=== PATIENT | female | born 1940 | race Caucasian/White ===

== ENCOUNTER 2019-04-13 13:34 | Outpatient (CLI) | payer MEDICARE, SELFPAY ==
--- NOTE | 2019-04-13 13:43 | CTR_ITS ---
PROCEDURE INFORMATION: Exam: CT Abdomen And Pelvis With Contrast Exam date and time: 04/13/2019 1:46 PM Age: 78 years old Clinical indication: Abdominal pain; Generalized; Prior surgery; Surgery date: 6+ months; Surgery type: Appy, bg, hyst; Patient HX: Upper abd pain for multiple months worsening TECHNIQUE: Imaging protocol: Computed tomography of the abdomen and pelvis with intravenous contrast. Total DLP: 1171.55 mGy-cm Radiation optimization: All CT scans at this facility use at least one of these dose optimization techniques: automated exposure control; mA and/or kV adjustment per patient size (includes targeted exams where dose is matched to clinical indication); or iterative reconstruction. Contrast material: OMNIPAQUE; Contrast volume: 95 ml; Contrast route: IV; COMPARISON: CT abdomen pelvis w con* [id number] 11/28/2017 2:31 PM FINDINGS: Lungs: visualized portions of the lung bases normal. Liver: Severe fatty infiltration of the liver. Gallbladder and bile ducts: Surgical clips are present in the region of the gallbladder fossa. Pancreas: Normal. No ductal dilation. Spleen: Normal. No splenomegaly. Adrenals: Normal. No mass. Kidneys and ureters: Normal. No hydronephrosis. Stomach and bowel: Diverticulosis without evidence of diverticulitis. Appendix: The appendix is not visualized. Intraperitoneal space: No free fluid within the pelvis or within the dependent portions of the peritoneum. Vasculature: Calcification of the aorta. Lymph nodes: Unremarkable. No enlarged lymph nodes. Bladder: Unremarkable as visualized. Reproductive: Prior hysterectomy. Bones/joints: Degenerative changes are present within the spine. Soft tissues: Unremarkable. Other findings: No acute intra-abdominal process. No inflammatory process. No obstruction. CT/CT abdomen pelvis w con* [id number] IMPRESSION: 1. No acute intra-abdominal process. No inflammatory process. No obstruction. 2. No free fluid within the pelvis or within the dependent portions of the peritoneum. 3. Severe fatty infiltration of the liver. 4. Diverticulosis without evidence of diverticulitis. Radiation Dose CTDIVOL = (mGy): DLP = 1171.55 (mGy-cm)
[2019-04-13] MEDS: iohexol 300 mg/mL 50 mL Btl PO (13:51)
[2019-04-13 14:21] LABS: Blood Urea Nitrogen 18 mg/dL (8-23)
[2019-04-13] MEDS: iodixanol 320 mg/mL 100mL Btl IV (15:39)
== END 2019-04-13 13:35 | disposition home or self-care (01) ==
LOC: RAD 13:41
PROVIDERS: Family Provider Family Medicine; PCP Family Medicine; Visit Provider Family Medicine
DX: K57.90 Diverticulosis of intestine, part unspecified, without perforation or abscess without bleeding (principal); K76.0 Fatty (change of) liver, not elsewhere classified; R10.9 Unspecified abdominal pain
CPT/HCPCS: 36415; 74177; 82565; 84520

== ENCOUNTER 2019-09-21 13:04 | Outpatient (CLI) | payer MEDICARE, SELFPAY ==
--- NOTE | 2019-09-21 | XR_ITS ---
WS: [id number] LATERAL LUMBAR SPINE: 3 view. Lateral radiographs are performed in upright neutral, flexion and extension to the patient's toleranc e. HISTORY: LOW BACK PAIN COMPARISON: 12/07/2010 Mild curvature of the lumbar spine and mild straightening. Posterior alignment is normal. Diffuse ost eopenia with facet joint arthritis. No instability with flexion or extension. Very slight anterior we dging of L1. Prior cholecystectomy. Atherosclerosis aorta. XR/XR lumbar spine f/e only [id number] IMPRESSION: 1. No lumbar spine instability. 2. Osteopenia with degenerative changes throughout the lumbar spine with moder ate progression since 2010.
== END 2019-09-21 13:05 | disposition home or self-care (01) ==
LOC: RADWPI 13:07
PROVIDERS: Family Provider Family Medicine; PCP Family Medicine; Visit Provider Nurse Practitioner
DX: M54.5 Low back pain (principal); M85.89 Other specified disorders of bone density and structure, multiple sites
CPT/HCPCS: 72120

== ENCOUNTER 2019-10-22 14:40 | Outpatient (CLI) | payer MEDICARE, SELFPAY ==
--- NOTE | 2019-10-22 14:47 | MM_ITS ---
WS: [id number] BILATERAL DIGITAL SCREENING MAMMOGRAPHY WITH CAD CLINICAL INFORMATION: SCREENING HISTORY: Screening mammogram. No current complaints. COMPARISON: June 26, 2016 TECHNIQUE: Bilateral CC and MLO views. FINDINGS: Scattered fibroglandular densities bilaterally. No suspicious focal mass, asymmetry, calcifications, or architectural distortion. No evidence of malignancy. Vascular and lucent centered calcifications. Stable left intramammary lymph node with fatty hilum. MM/[place] [id number] IMPRESSION: BI-RADS: 2-Benign FOLLOW UP: 1 Year Follow-up Recommend return to annual screening mammography.
--- NOTE | 2019-10-22 15:22 | XR_ITS ---
WS: [id number] DEXA (DUAL ENERGY X-RAY ABSORPTIOMETRY) Bone mineral density was performed using a Technit[employer] machine. HISTORY: ANNUAL EXAM COMPARISON: None available. Lumbar spine BMD (L1-L4): 1.274 g/cm2 T score: 0.8 Z score: 1.9 Total hip BMD: Left: 0.896 g/cm2. T score: -0.9 Z score: 0.5 Right: 0.924 g/cm2. T score: -0.7 Z score: 0.7 10 year probability of a major osteoporotic fracture is 12%. Mild LEFT convex curvature lumbar spine. XR/XR DEXA axial skeleton* [id number] IMPRESSION: NORMAL BONE MINERAL DENSITY based upon the WHO classification for females.
== END 2019-10-22 14:41 | disposition home or self-care (01) ==
LOC: RADSHAW 14:46
PROVIDERS: PCP Family Medicine; Visit Provider Family Medicine
DX: Z12.31 Encounter for screening mammogram for malignant neoplasm of breast (principal); Z78.0 Asymptomatic menopausal state
CPT/HCPCS: 77067; 77080

== ENCOUNTER 2020-04-14 10:26 | Outpatient (CLI) | payer MEDICARE, SELFPAY ==
--- NOTE | 2020-04-14 10:43 | XR_ITS ---
WS: [id number] Chest 2 views, 04/14/2020 Clinical Data: DYSPNEA Comparison: None. Findings: No nodules, masses or effusions are seen. The heart is normal. The pulmonary vascularity is not increased. No pneumonia or pneumothorax is seen. The right diaphragm is elevated. The aortic arc h and descending aorta show calcification and tortuosity. There are clips in the upper abdomen from a cholecystectomy. XR/XR chest 2V* [id number] Impression: Atherosclerosis.
== END 2020-04-14 10:27 | disposition home or self-care (01) ==
PROVIDERS: PCP Family Medicine; Visit Provider Family Medicine
DX: R06.02 Shortness of breath (principal); I70.90 Unspecified atherosclerosis
CPT/HCPCS: 71046

== ENCOUNTER 2020-04-22 08:12 | Outpatient (CLI) | payer MEDICARE, SELFPAY ==
[2020-04-22 08:58] VITALS: BMI 31.3
--- NOTE | 2020-04-22 08:58 | ECG_ITS ---
[facility] Test Date: 2020-04-22 Pat Name: Kell Tripathi Department: Room: Gender: Female [employer]ter: : 1940 Requested By: Kulwinder Marin Order Number: [id number] Robinson MD: Zaira Guerrero M.D. Interpretive Statements NAME OF STUDY: LEXISCAN SESTAMIBI STRESS TEST INDICATION: Screening for IHD, CAD PROCEDURE: At the baseline, the blood pressure was 160/85 mmHg with a heart rate of 66 bpm. The electrocardiogram showed normal sinus rhythm, normal axis with possible old septal infarct. Nonspecific ST depression. The Lexiscan was infused over a period of 20 seconds. A total of 0.4 milligrams of Lexiscan was infused. The stress phase was continued for a total of 5 minutes. Heart rate at the end of the stress phase was 83 bpm with a blood pressure of 185/89 mmHg. The EKG at the peak infusion revealed no significant ST-T wave changes. Sestamibi was injected 20 seconds after the Lexiscan infusion. Blood pressure at the end of the recovery phase was 193/96 mmHg with a heart rate of 84 beats per minute. CONCLUSION: 1. No significant EKG changes with the LexiScan infusion. 2. No LexiScan induced chest pain or cardiac arrhythmia. 3. Normal blood pressure and heart rate response. 4. Sestamibi/sestamibi perfusion scan pending; see separate report. Electronically Signed On 04-25-2020 16:54:17 [facility] by Zaira Guerrero M.D. [id number]
--- NOTE | 2020-04-22 08:59 | NMCV_ITS ---
NM mikaela perf SPECT r/s* [id number] Kell Tripathi Age: 79 Gender: F : 1940 Exam Date: 04/22/2020 10:12 Ordering Phys: Kulwinder Ace MD Technologist: YINA Mendez Exam Location: [facility] Indications: SCREENING FOR ISCHEMIC HEART DISEASE STRESS TEST Please see separate stress test report in [facility] for full findings IMAGE PROTOCOL Rest/Stress 1 Lexiscan Day Radiopharmaceutical Dose (mCi) Administration Site Administered by Rest: Tc-99m 10.7 IV YINA Ramsay Sestamibi Stress:Tc-99m 33.0 IV YINA Ramsay Sestamibi Rest: 04/22/2020 60 Discovery 630 Stress: 04/22/2020 30 Discovery 630 0.4mg Lexiscan. Images obtained in supine and prone position. SPECT RESULTS Technical Quality: Excellent Raw Data Analysis: Normal Image Corrections: No attenuation or motion correction applied Summed Stress Score: 0 Summed Rest Score: 0 Summed Difference Score: 0 PERFUSION FINDINGS SPECT images demonstrate homogeneous tracer distribution throughout the myocardium. FUNCTIONAL RESULTS (calculated via Gated SPECT) Stress Image LV EF (%): 92 Stress EDV (mL):50 TID: 1 Stress ESV (mL):4 FUNCTIONAL FINDINGS: The left ventricle is normal in size. Transient Ischemia Dilatation of 1. There is hyperdynamic left ventricular systolic function. The left ventricular ejection fraction is hyperdynamic with a value of 92%. There is hyperdynamic left ventricular wall thickening. IMPRESSIONS 1. Myocardial perfusion imaging is normal. 2. Overall left ventricular systolic function is normal without regional wall motion abnormalities. 3. The left ventricular ejection fraction is hyperdynamic with a value of 92%. 4. There is hyperdynamic left ventricular wall thickening. 5. This study suggests a low likelihood of angiographically significant coronary artery disease. Zaira Guerrero MD (Electronically Signed) Final Date: 25 April 2020 16:50 S
--- NOTE | 2020-04-22 10:35 | PC.NURSE ---
pt held bp meds for 24 hrs not 48. called and verified with dr lopez to continue with exercise mibi. he said to proceed with exercise mibi.
--- NOTE | 2020-04-22 10:56 | PC.NURSE ---
pt not able to complete treadmill portion of test. call into dr lopez to change to oscar. dr not in office at this minute. office to call back with dr turner.
--- NOTE | 2020-04-22 11:28 | PC.NURSE ---
verbal order to change to lexiscan.
[2020-04-22 11:59] VITALS: BP 193/96; PULSE 84
[2020-04-22] MEDS: regadenoson 0.4 Mg/5 ml Syringe IVP (11:59)
== END 2020-04-22 08:13 | disposition home or self-care (01) ==
LOC: RAD 08:15 → CDL 08:15
PROVIDERS: PCP Family Medicine; Visit Provider Family Medicine
DX: Z13.6 Encounter for screening for cardiovascular disorders (principal)
CPT/HCPCS: 78452; 93017; A9500; J2785

== ENCOUNTER 2020-05-16 08:08 | Outpatient (CLI) | payer MEDICARE, SELFPAY ==
--- NOTE | 2020-05-16 08:30 | CT_ITS ---
WS: [id number] CT CHEST ANGIOGRAPHY WITH REFORMATS HISTORY: DYSPNEA TECHNIQUE: Contiguous axial images are obtained through the chest during arterial injection of intrav enous contrast. Images are reconstructed to evaluate the pulmonary arteries. MIP imaging also reviewe d. All CT scans at [facility] use at least one of these dose optimization techniques: aut omated exposure control; mA and/or kV adjustment per patient size (includes targeted exams where dose is matched to clinical indication); or iterative reconstruction. CONTRAST: Visipaque 320; 95 mL IV. DLP: 768.36 mGycm COMPARISON: None available. Adequate opacification of the pulmonary artery centrally. Beyond the central lobar branches the opaci fication is limited due to poor injection. Pulmonary artery is normal. No emboli or filling defects a re identified. Mild atherosclerosis aorta with no aneurysm. Heart size is normal. No pericardial or p leural effusions. Small, subcentimeter mediastinal and hilar lymph nodes. Moderate coronary artery atherosclerosis, greatest involving the LEFT anterior descending coronary. Linear scarring or atelectasis at the lingula. There is some very mild haziness and groundglass atten uation in the RIGHT middle lobe and along the inferior RIGHT upper lobe. No dense areas of consolidat ion or mass. No chest wall abnormality. Visualized upper abdomen is negative for acute process. The visualized newton er is normal. Prior cholecystectomy. Mild spondylitic changes in the thoracic spine. CT/CT angio chest PE protcl [id number] IMPRESSION: 1. No pulmonary emboli identified. 2. No pulmonary hypertension. 3. A few scattered areas of groundglass attenuation are likely from pneumoniti s in the RIGHT middle and inferior RIGHT upper lobes. 4. No pleural effusion. 5. Prior cholecystectomy. 6. Mild atherosclerosis aorta. 7. Moderate coronary artery atherosclerosis.
[2020-05-16] MEDS: iodixanol 320 mg/mL 100mL Btl IV (09:28)
== END 2020-05-16 08:09 | disposition home or self-care (01) ==
PROVIDERS: PCP Family Medicine; Visit Provider Family Medicine
DX: R06.00 Dyspnea, unspecified (principal); I25.10 Atherosclerotic heart disease of native coronary artery without angina pectoris; I70.0 Atherosclerosis of aorta; Z90.49 Acquired absence of other specified parts of digestive tract
CPT/HCPCS: 71275; Q9967

== ENCOUNTER 2020-09-19 11:06 | Outpatient (CLI) | payer MEDICARE, SELFPAY ==
--- NOTE | 2020-09-19 11:17 | XR_ITS ---
WS: [id number] LUMBAR SPINE: 3 VIEWS TECHNIQUE: AP, lateral and L5-S1 spot. HISTORY: LOW BACK PAIN COMPARISON: None available. Moderate LEFT curvature lumbar spine. Asymmetric disc space narrowing at L4-5, greatest along the LEF T curvature. Bones are osteopenic. Mild asymmetric narrowing of the LEFT lateral L4 vertebral body. Advanced multilevel facet joint arthritis, most significant at L5-S1. SI joints are symmetric bilaterally. No soft tissue abnormalities. Prior cholecystectomy. Moderate calcification in aorta. Prior cholecystectomy. XR/XR lumbar spine 2-3V* [id number] IMPRESSION: 1. Mild LEFT curvature lumbar spine with asymmetric disc space narrowing at L4 -5. 2. Mild asymmetric loss of height of the LEFT lateral L4 vertebral body. Mild progression of the LEFT lateral vertebral body change in height. 3. Advanced facet joint arthritis throughout the lumbar spine.
== END 2020-09-19 11:07 | disposition home or self-care (01) ==
LOC: RADWPI 11:11
PROVIDERS: PCP Family Medicine; Visit Provider Anesthesiology Pain Medicine
DX: M54.5 Low back pain (principal); M47.816 Spondylosis without myelopathy or radiculopathy, lumbar region
CPT/HCPCS: 72100

== ENCOUNTER 2020-09-29 15:41 | Outpatient (CLI) | payer MEDICARE, SELFPAY ==
--- NOTE | 2020-09-29 15:46 | MR_ITS ---
WS: [id number] MRI LUMBAR SPINE NONCONTRAST HISTORY: LBP; RULE-OUT ACUTE FX S/P FALL COMPARISON: Lumbar radiographs 09/19/2020 TECHNIQUE: Sagittal and axial multisequence imaging is submitted. Moderate diffuse spondylitic changes throughout the cervical and thoracic spine. Mixed marrow signal is probably related to aging and osteopenia. Mild straightening of the normal lumbar lordosis. Mild LEFT curvature of the mid lumbar spine. T11: Mild compression fractures less than 10%. Marrow edema to the superior endplate. L1: 10% acute L1 compression fracture with increased edema along the superior endplate. No retropulsi on. Disregard desiccated and narrowed throughout the lumbar spine. Most significant narrowing at L4-5. Conus terminates normally at L1. L1-L2: Mild facet and ligamentum flavum hypertrophy. No stenosis. L2-L3: Mild annular disc bulging and osteophytic ridging and moderate facet arthritis. Increase fluid in the facet joints. Moderate narrowing of the RIGHT subarticular recess with mild encroachment upon the L3 nerve root. L3-L4: Moderate osteophytic ridging and annular disc bulging with moderate to severe ligamentum flavu m hypertrophy and facet arthritis. Moderate to severe central and bilateral subarticular recess steno sis and only mild foraminal stenosis. Moderate encroachment upon the L4 nerve roots. L4-L5: Diffuse annular disc bulging with osteophytic ridging and moderate ligamentum flavum hypertrop hy and facet arthritis. Severe central with bilateral lateral recess and subarticular stenosis. Most significant encroachment upon the LEFT L5 nerve root. Mild bilateral foraminal stenosis. L5-S1: Mild annular disc bulge with a central disc protrusion with moderate ligamentum flavum hypertr ophy and facet arthritis. Disc is asymmetrically bulging greatest into the LEFT foramen. There is mil d encroachment and mild contact on the S1 nerve roots bilaterally. Moderate atrophy of the psoas muscles. Atherosclerotic changes in the aorta. MR/MR lumbar spine wo con* [id number] IMPRESSION: 1. Acute T11 compression fracture less than 10% without retropulsion. 2. Acute L1 compression fracture 10% without retropulsion. 3. Multilevel advanced spondylitic changes throughout the lumbar spine. Most s ignificant from L2 L3-4 through L5-S1. 4. Severe central with bilateral lateral recess and subarticular recess stenos is at L4-5 with encroachment greatest on the LEFT L5 nerve root. 5. Moderate to severe central, bilateral subarticular recess stenosis and mild foraminal stenosis at L3-4 with moderate encroachment upon the L4 nerve roots. 6. Mild disc contact on the S1 nerve roots bilaterally. 7. Moderate RIGHT subarticular recess stenosis at L2-3.
== END 2020-09-29 15:42 | disposition home or self-care (01) ==
LOC: RADSHAW 15:43
PROVIDERS: PCP Family Medicine; Visit Provider Anesthesiology Pain Medicine
DX: S22.089A Unspecified fracture of T11-T12 vertebra, initial encounter for closed fracture (principal); S32.019A Unspecified fracture of first lumbar vertebra, initial encounter for closed fracture; M48.061 Spinal stenosis, lumbar region without neurogenic claudication; W19.XXXA Unspecified fall, initial encounter
CPT/HCPCS: 72148

== ENCOUNTER 2021-01-03 09:11 | Outpatient (CLI) | payer MEDICARE, SELFPAY ==
--- NOTE | 2021-01-03 09:34 | MR_ITS ---
WS: [id number] MRI LUMBAR SPINE NONCONTRAST TECHNIQUE: Sagittal T1, T2 and STIR imaging. Axial T1 and T2 imaging. CLINICAL INFORMATION: WEDGE COMPRESSION FX OF FIRST LUMBAR VERTEBRA COMPARISON: September 29, 2020 FINDINGS: Normal lumbar alignment. Small amount of residual edema in the L1 superior endplate compression fract ure. Mild compression appears stable compared to previous. No significant retropulsion. Minimal compr ession T11 vertebral body with no significant residual edema today. No new compression fractures. Dis c space narrowing worse L4-5. T12-L1: No significant disc bulging. Spinal canal and foramen are patent. L1-L2: Mild annular bulging. Slight effacement of the ventral thecal sac. No significant central garo l stenosis. Mild facet arthropathy. Spinal canal and foramen are patent. L2-L3: Mild annular bulging with slight narrowing of the right subarticular recess and encroachment t raversing right L3 nerve root. Mild facet arthropathy. Spinal canal and foramen are patent. L3-L4: Mild annular bulging in combination with facet arthropathy ligament flavum hypertrophy results in moderate central canal stenosis with impingement traversing L4 nerve roots bilaterally. Small rig ht foraminal protrusion impinges the exiting right L3 nerve root. Mild right foraminal narrowing. L4-L5: Mild disc bulging with osteophytic ridging. Moderate central canal stenosis. Impingement on th e traversing left L5 nerve root in the subarticular recess. Moderate facet arthropathy. Mild left for aminal narrowing with slight contact of the exiting left L4 nerve root. L5-S1: Mild disc bulging with osteophytic ridging. Slight impingement traversing S1 nerve roots bilat erally subarticular recess. Mild left and no significant right foraminal narrowing. Moderate facet ar thropathy. Visualized pelvic bony structures: Normal. Paravertebral soft tissues: Normal. MR/MR lumbar spine wo con* [id number] IMPRESSION: 1. Mild T11 and L1 superior endplate fractures are stable compared to previous . No evidence of progression. Tiny amount of residual edema at L1. T11 edema jacobs s resolved. No significant retropulsion. 2. Moderate central canal stenosis L3-4 impinges the traversing L4 nerve roots bilaterally. This is stable compared to previous. 3. Moderate central canal stenosis L4-5 impinges the subarticular recess and t raversing L5 nerve roots. This is unchanged. 4. Mild annular bulging L5-S1 slightly impinges the traversing S1 nerve roots bilaterally. 5. Mild narrowing of the right L2-3 subarticular recess. 6. Small right foraminal protrusion L3-4 slightly impinges the exiting right L 3 nerve root. 7. Left eccentric disc osteophytic ridging L4-5 contacts the exiting left L4 n erve root laterally. 8. Mild left L5-S1 foraminal narrowing.
== END 2021-01-03 09:12 | disposition home or self-care (01) ==
PROVIDERS: PCP Family Medicine; Visit Provider Anesthesiology Pain Medicine
DX: S32.010A Wedge compression fracture of first lumbar vertebra, initial encounter for closed fracture (principal); X58.XXXA Exposure to other specified factors, initial encounter; M25.78 Osteophyte, vertebrae; M51.26 Other intervertebral disc displacement, lumbar region; M51.27 Other intervertebral disc displacement, lumbosacral region; M48.061 Spinal stenosis, lumbar region without neurogenic claudication
CPT/HCPCS: 72148

== ENCOUNTER 2021-07-22 15:31 | Emergency (ER) | payer MEDICARE, SELFPAY ==
--- NOTE | 2021-07-22 15:33 | ED_ITS ---
Documented by User: Keaton Amaya MD 07/27/21 21:00 HPI - Weakness General: Chief complaint: Fever Stated complaint: WEAKNESS Time Seen by Provider: 07/22/21 15:33 History of Present Illness: Ms. Pena is a 80-year-old lady with history of fibromyalgia, diabetes, hypertension, GERD, diverticulosis who presents to the emergency department due to generalized weakness and malaise. The patient has mild changes in mental status with slowed responses requiring prompting. She endorses likely few day history of generalized malaise including generalized weakness and falls. She does not think that she has had chest pain or respiratory infectious symptoms. She has had poor p.o. intake though no abdominal pain. Earlier today she fell and does have back pain though back pain is not worse than baseline and there are no new neurologic symptoms associated with this. Overall course of symptoms has been worsening. Intensity is moderate. No other specific changes in health, exacerbating, or alleviating factors identified. Onset (ago): day(s) Duration: progressively worsening Severity: moderate Relieving factors: none Exacerbating factors: exertion Review of Systems General: Reports: 10 or more systems reviewed and unremarkable except in HPI and below PFSH ED PFSH: Medical History (Updated 07/22/21 @ 19:52 by Gee Jackson DO) Chronic back pain Diabetes GERD (gastroesophageal reflux disease) Hypertension Surgical History (Updated 07/22/21 @ 17:37 by Keaton Amaya MD) H/O: hysterectomy History of appendectomy History of section History of left knee replacement Social History (Updated 07/22/21 @ 17:37 by Keaton Amaya MD) Smoking and tobacco status: never smoked Physical Exam Const: COMMON NORMALS: patient oriented x3 and alert GENERAL APPEARANCE: cooperative, well developed and ill appearing (Somewhat) HENMT: COMMON NORMALS: normocephalic, atraumatic, moist oral mucous membranes and oropharynx normal HEAD & SCALP: normocephalic and atraumatic Eye: COMMON NORMALS: conjunctivae normal CONJUNCTIVA: Yes conjunctivae normal SCLERA: sclerae normal Neck/C-Spine: COMMON NORMALS: supple and no meningeal signs GENERAL: Yes trachea midline Resp: COMMON NORMALS: normal respiratory effort EFFORT & INSPECTION: Yes able to speak in complete sentences Cardio: COMMON NORMALS: regular rate and regular rhythm RATE: regular rate RHYTHM: regular rhythm GI: COMMON NORMALS: Soft to palpation PALPATION: Yes Soft to palpation and No Tenderness to palpation present (GI) PERCUSSION: normal to percussion Extremity: GENERAL: Yes normal exam except as noted and No edema Neuro: COMMON NORMALS: patient oriented x3, CN's II-XII intact bilaterally, moves all extremities, no focal motor deficits and no sensory deficits noted SENSORIUM/ORIENTATION: Yes alert and No Orientation impaired MENINGEAL SIGNS: Yes no meningeal signs OTHER: Responses mildly slowed, poor recall of recent illness Course ED course: - Patient was seen and evaluated by me at bedside - Patient placed on cardiac monitors, IV access obtained - Initial evaluation notable for exam as above. - Labs and xrays personally interpreted by me. EKG from 1750 personally reviewed, no STEMI. -Fluids, analgesia given - Labs notable for no leukocytosis, normal hemoglobin. Metabolic panel with mild evidence of dehydration, hypokalemia noted with replenishment ordered. Urinalysis pending at time of care transition. - Imaging notable for negative head CT. CT chest abdomen pelvis scan pending. -Patient care handed off to overnight ED physician Dr. Jackson pending completion of ED evaluation Note: Click bubbles or prepopulated sellers in note writing are used for assistance with data collection and billing and are inherently more limited than narrative and other text portions of this note. Please use narrative for additional clini andreina history and defer to narrative/free test for any case of contradictory information. If information appears in only free text or click bubble it should be considered present or absent as reported. Please contact note appeals writer for clarifications of clinical information or contradictory information. MDM is a brief summary, contradictory or erroneous seeming information should be clarified and full note should be reviewed. Vital Signs: Vital signs: Vital Signs Temperature 97.9 F 07/22/21 19:47 Pulse Rate 78 07/22/21 19:00 Respiratory Rate 22 H 07/22/21 19:00 Blood Pressure 154/90 07/22/21 19:00 Pulse Oximetry 95 07/22/21 18:51 MDM - Weakness Medical Decision Making 80-year-old lady presenting with generalized symptoms. Somewhat ill appearing on clinical exam. Handed off pending completion of ED evaluation. 80-year-old female received in checkout from previous physician. This is a 80-year-old lady with a fever and mental status change. After Tylenol, current temperature is 97.9. No leukocytosis. Her potassium was 3.0 and was repleted. Her creatinine appears essentially baseline. After temperature broken, fluid bolus, she is much more alert. Family states she is basically back to baseline. Urinalysis shows urinary tract infection that is significant. CTs are essentially negative. She is treated with a gram of Rocephin here. We will continue antibiotics at home. They were given the option for admission, but really wished to go home. Medical Records I reviewed the patient's medical records. Lab Data I reviewed the patient's lab results. : 07/22/21 16:00 07/22/21 16:00 Radiology Impressions Cervical Spine CT 07/22/21 15:54 IMPRESSION: No acute findings. Chest/Abdomen/Pelvis CT 07/22/21 15:54 IMPRESSION: No acute findings. IMPRESSION: 1. No acute intra-abdominal findings. 2. Age-indeterminate L1 compression fracture is new since 05/16/2020. 3. Incidental findings above. Head CT 07/22/21 15:54 IMPRESSION: Negative for acute intracranial abnormality. Laboratory Results WBC 7.6 10^3/uL (4.0-10.0) 07/22/21 16:00 RBC 4.07 10^6/uL (4.1-5.3) L 07/22/21 16:00 Hgb 12.3 g/dL (11.5-15.3) 07/22/21 16:00 Hct 35.3 % (37.0-47.0) L 07/22/21 16:00 MCV 86.7 fl (81-99) 07/22/21 16:00 MCH 30.2 pg (28.0-34.0) 07/22/21 16:00 MCHC 34.8 g/dL (30.0-36.0) 07/22/21 16:00 RDW 13.0 % (12.1-15.1) 07/22/21 16:00 Plt Count 153 10^3/cmm (130-400) 07/22/21 16:00 MPV 11.4 fL (7.4-10.4) H 07/22/21 16:00 Neut % (Auto) 87.6 % 07/22/21 16:00 Lymph % (Auto) 5.0 % 07/22/21 16:00 [place] % (Auto) 7.0 % 07/22/21 16:00 Eos % (Auto) 0.0 % 07/22/21 16:00 Baso % (Auto) 0.1 % 07/22/21 16:00 Neut # (Auto) 6.64 10^3/uL (1.8-7.7) 07/22/21 16:00 Lymph # (Auto) 0.4 10^3/uL (0.8-4.8) L 07/22/21 16:00 [place] # (Auto) 0.5 10^3/uL (0.2-0.9) 07/22/21 16:00 Eos # (Auto) 0.0 10^3/uL (0.0-0.8) 07/22/21 16:00 Baso # (Auto) 0.0 10^3/uL (0.0-0.1) 07/22/21 16:00 Nucleated RBC % (auto) 0 % 07/22/21 16:00 Nucleated RBCs # 0.0 /100WBC 07/22/21 16:00 Sodium 129 mmol/L (136-145) L 07/22/21 16:00 Potassium 3.0 mmol/L (3.5-5.1) L 07/22/21 16:00 Chloride 90 mmol/L (98-107) L 07/22/21 16:00 Carbon Dioxide 27 mmol/L (22-29) 07/22/21 16:00 Anion Gap 15.0 (5-19) 07/22/21 16:00 BUN 18 mg/dL (8-23) 07/22/21 16:00 Creatinine 1.3 mg/dL (0.5-0.9) H 07/22/21 16:00 GFR Calculation Not Reportable 07/22/21 16:00 Glucose 225 mg/dL (65-115) H 07/22/21 16:00 POC Glucose 216 mg/dL (70-110) H 07/22/21 16:55 Calculated Osmolality 277 mOsm/kg (285-295) L 07/22/21 16:00 Lactic Acid 1.0 mmol/L (0.5-2.2) 07/22/21 18:11 Calcium 8.3 mg/dL (8.5-10.5) L 07/22/21 16:00 Magnesium 1.6 mg/dL (1.7-2.3) L 07/22/21 16:00 Total Bilirubin 0.7 mg/dL (0.15-1.2) 07/22/21 16:00 AST 19 U/L (0-32) 07/22/21 16:00 ALT 14 U/L (0-33) 07/22/21 16:00 Alkaline Phosphatase 55 IU/L (35-105) 07/22/21 16:00 Troponin T Baseline 17 ng/L (0-10) H 07/22/21 16:00 Troponin T 120 Minute 16.52 ng/L (0-10) H 07/22/21 18:11 Delta Troponin T -0.48 ABS# (0-10) L 07/22/21 18:11 C-Reactive Protein 71.6 mg/L (0.0-4.9) H 07/22/21 16:00 Total Protein 6.7 g/dL (6.6-8.7) 07/22/21 16:00 Albumin 3.9 g/dL (3.5-5.2) 07/22/21 16:00 Globulin 2.8 g/dL (1.3-4.6) 07/22/21 16:00 Procalcitonin 0.29 ng/mL (0-0.5) 07/22/21 16:00 TSH 1.26 uIU/mL (0.27-4.20) 07/22/21 16:00 Urine Color Yellow (Yellow) 07/22/21 17:50 Urine Appearance Hazy (CLEAR) A 07/22/21 17:50 Urine pH 5 (5-7) 07/22/21 17:50 Ur Specific [place] 1.010 (1.005-1.030) 07/22/21 17:50 Urine Protein 1+ (Negative) H 07/22/21 17:50 Urine Glucose (UA) Norm (Normal) 07/22/21 17:50 Urine Ketones Negative (Negative) 07/22/21 17:50 Urine Blood 3+ (Negative) H 07/22/21 17:50 Urine Nitrate Positive (Negative) H 07/22/21 17:50 Urine Bilirubin Neg (Negative) 07/22/21 17:50 Urine Urobilinogen Norm mg/dL (Negative) 07/22/21 17:50 Ur Leukocyte Esterase 2+ (Negative) H 07/22/21 17:50 Urine RBC 5-10 /hpf (0-2) H 07/22/21 17:50 Urine WBC Too numerous to cnt /hpf (0-5) H 07/22/21 17:50 Ur Squamous Epith Cells 0-4 /hpf (0-5) H 07/22/21 17:50 Amorphous Sediment Not Reportable 07/22/21 17:50 Urine Bacteria 4+ /hpf (NONE) H 07/22/21 17:50 Influenza Type A Ag Negative (Negative) 07/22/21 16:30 Influenza Type B Ag Negative (Negative) 07/22/21 16:30 SARS-CoV-2 Ag (Rapid) Negative (Negative) 07/22/21 16:30 Discharge Plan Discharge Patient Disposition: Home Clinical Impression: Urinary tract infection Condition: Stable Prescriptions: New cefdinir 300 mg capsule 300 mg PO BID 7 Days Qty: 14 0RF Discharge Orders: Discharge ED (Routine); Ordered 07/22/21 Ordered By: Gee Jackson Referrals: Kulwinder Ace MD [Primary Care Provider] - 1-3 days Discharge Diet: Advance as tolerated Discharge Activity: Increase activity as tolerated Activity Restrictions/Additional Instructions: Return for continued fever despite 2-3 doses of antibiotics, worsening mental status despite treatment, development of any new or concerning symptoms. Coding Level of Care Code ED Industrial Cook for Chg Fwd Exam Comprehensive Documented by User: Gee Jackson DO 07/23/21 02:48 HPI - Weakness General: Chief complaint: Fever Stated complaint: WEAKNESS Time Seen by Provider: 07/22/21 15:33 PFSH ED PFSH: Medical History (Updated 07/22/21 @ 19:52 by Gee Star Manuel, DO) Chronic back pain Diabetes GERD (gastroesophageal reflux disease) Hypertension Surgical History (Updated 07/22/21 @ 17:37 by Keaton Amaya MD) H/O: hysterectomy History of appendectomy History of section History of left knee replacement Social History (Updated 07/22/21 @ 17:37 by Keaton Amaya MD) Smoking and tobacco status: never smoked Course Vital Signs: Vital signs: Vital Signs Temperature 97.9 F 07/22/21 19:47 Pulse Rate 78 07/22/21 19:00 Respiratory Rate 22 H 07/22/21 19:00 Blood Pressure 154/90 07/22/21 19:00 Pulse Oximetry 95 07/22/21 18:51 MDM - Weakness Medical Decision Making 80-year-old female received in checkout from previous physician. This is a [age]-year-old lady with a fever and mental status change. After Tylenol, current temperature is 97.9. No leukocytosis. Her potassium was 3.0 and was repleted. Her creatinine appears essentially baseline. After temperature broken, fluid bolus, she is much more alert. Family states she is basically back to baseline. Urinalysis shows urinary tract infection that is significant. CTs are essentially negative. She is treated with a gram of Rocephin here. We will continue antibiotics at home. They were given the option for admission, but really wished to go home. Lab Data : 07/22/21 16:00 07/22/21 16:00 Radiology Impressions Cervical Spine CT 07/22/21 15:54 IMPRESSION: No acute findings. Chest/Abdomen/Pelvis CT 07/22/21 15:54 IMPRESSION: No acute findings. IMPRESSION: 1. No acute intra-abdominal findings. 2. Age-indeterminate L1 compression fracture is new since 05/16/2020. 3. Incidental findings above. Head CT 07/22/21 15:54
[2021-07-22 15:34] VITALS: BP 169/89; PULSE 79; RESP 20; TEMP 38.5; O2SAT 92; BMI 30.7
--- NOTE | 2021-07-22 15:54 | CTR_ITS ---
PROCEDURE INFORMATION: Exam: CT Head Without Contrast Exam date and time: 07/22/2021 5:31 PM Age: 80 years old Clinical indication: Injury or trauma; Blunt trauma (contusions or hematomas); Without loss of consciousness; Patient HX: AMS w L sided VINSON after fall; Additional info: Fall, AMS TECHNIQUE: Imaging protocol: Computed tomography of the head without contrast. Radiation optimization: All CT scans at this facility use at least one of these dose optimization techniques: automated exposure control; mA and/or kV adjustment per patient size (includes targeted exams where dose is matched to clinical indication); or iterative reconstruction. COMPARISON: No relevant prior studies available. RADIATION DOSE METRICS: Total DLP (mGy-cm): 851.18 FINDINGS: Brain: There is moderate cerebral atrophy. There is moderate diffuse heterogeneity of the white matter attenuation, consistent with chronic white matter ischemic changes. Negative for intracranial hemorrhage. No intracranial mass. No midline shift of brain. No cerebral sulcal effacement. Cerebral ventricles: No ventriculomegaly. Paranasal sinuses: Visualized sinuses are unremarkable. No fluid levels. Mastoid air cells: Visualized mastoid air cells are well aerated. Bones/joints: Unremarkable. No acute fracture. Soft tissues: Unremarkable. CT/CT head wo con* [id number] IMPRESSION: Negative for acute intracranial abnormality.
--- NOTE | 2021-07-22 15:54 | ECG_ITS ---
[facility] Test Date: 2021-07-22 Pat Name: Kell Tripathi Department: Room: Gender: Female Senior Budget Analyst: : 1940 Requested By: Keaton Amaya Order Number: [id number] Robinson MD: Osmar Gonzales M.D. Measurements Intervals [place] Rate: 80 P: 92 MN: 360 QRS: -17 QRSD: 90 T: 23 QT: 359 QTc: 416 Interpretive Statements Sinus rhythm No further interpretation possible due to underlying artifact No previous ECG available for comparison Electronically Signed On 07-23-2021 8:14:53 CDT by Osmar Gonzales M.D. [id number]
--- NOTE | 2021-07-22 15:54 | CTR_ITS ---
PROCEDURE INFORMATION: Exam: CT Cervical Spine Without Contrast Exam date and time: 07/22/2021 5:34 PM Age: 80 years old Clinical indication: Injury or trauma; Blunt trauma; Patient HX: Fall this am; Additional info: Fall, AMS TECHNIQUE: Imaging protocol: Computed tomography images of the cervical spine without contrast. Radiation optimization: All CT scans at this facility use at least one of these dose optimization techniques: automated exposure control; mA and/or kV adjustment per patient size (includes targeted exams where dose is matched to clinical indication); or iterative reconstruction. COMPARISON: CR Cervical Spine AP/Lat* [id number] 05/21/2017 12:44 PM RADIATION DOSE METRICS: Total DLP (mGy-cm): 657.3 FINDINGS: Vertebrae: No acute fracture. Normal alignment. The cervical spine demonstrates moderate degenerative changes at multiple levels. 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 C2-C3: No significant disc protrusion. No severe spinal canal stenosis. No significant neural foraminal narrowing. C3-C4: No significant disc protrusion. No severe spinal canal stenosis. No significant neural foraminal narrowing. C4-C5: No significant disc protrusion. No severe spinal canal stenosis. No significant neural foraminal narrowing. C5-C6: No significant disc protrusion. No severe spinal canal stenosis. No significant neural foraminal narrowing. C6-C7: No significant disc protrusion. No severe spinal canal stenosis. No significant neural foraminal narrowing. C7-T1: No significant disc protrusion. No severe spinal canal stenosis. No significant neural foraminal narrowing. Soft tissues: Unremarkable. Lungs: Lung apices are normal. CT/CT cervical spin wo con* [id number] IMPRESSION: No acute findings.
--- NOTE | 2021-07-22 15:54 | CTR_ITS ---
PROCEDURE INFORMATION: Exam: CT Chest With Contrast; Diagnostic Exam date and time: 07/22/2021 5:40 PM Age: 80 years old Clinical indication: Abdominal pain; Generalized; Chest pressure; Prior surgery; Surgery date: <1 month; Surgery type: Spinal stim. Hyst, appy; Patient HX: C/O pain all over - fall this am w recent stimulator placement; Additional info: Fall, AMS, chest/back/abdominal pain TECHNIQUE: Imaging protocol: Diagnostic computed tomography of the chest with contrast. Radiation optimization: All CT scans at this facility use at least one of these dose optimization techniques: automated exposure control; mA and/or kV adjustment per patient size (includes targeted exams where dose is matched to clinical indication); or iterative reconstruction. Contrast material: VISI 320; Contrast volume: 95 ml; Contrast route: INTRAVENOUS (IV); COMPARISON: 1. CT angio chest PE protcl [id number] 05/16/2020 9:[address] abdomen pelvis w con* [id number] 04/13/2019 3:50 PM RADIATION DOSE METRICS: Total DLP (mGy-cm): 1442.64 FINDINGS: Tubes, catheters and devices: There is an epidural neurostimulator. The lead tips are positioned at T6-7. Lungs: There is no consolidation. There is subsegmental atelectasis in the lung bases. There is a calcified granuloma in the right lower lobe. Pleural spaces: There is no pleural effusion or pneumothorax. Heart: Heart size is normal. There is no pericardial effusion. There is moderate coronary artery calcification. Lymph nodes: There are numerous small mediastinal lymph nodes. No enlarged lymph nodes. Vasculature: There is moderate aortic atherosclerotic disease. The central pulmonary arteries are unremarkable. Bones/joints: Bones are unremarkable. Soft tissues: The extrathoracic soft tissues are unremarkable. PROCEDURE INFORMATION: Exam: CT Abdomen And Pelvis With Contrast Exam date and time: 07/22/2021 5:40 PM Age: 80 years old Clinical indication: Abdominal pain; Generalized; Chest pressure; Prior surgery; Surgery date: <1 month; Surgery type: Spinal stim. Hyst, appy; Patient HX: C/O pain all over - fall this am w recent stimulator placement; Additional info: Fall, AMS, chest/back/abdominal pain TECHNIQUE: Imaging protocol: Computed tomography of the abdomen and pelvis with contrast. Radiation optimization: All CT scans at this facility use at least one of these dose optimization techniques: automated exposure control; mA and/or kV adjustment per patient size (includes targeted exams where dose is matched to clinical indication); or iterative reconstruction. Contrast material: VISI 320; Contrast volume: 95 ml; Contrast route: INTRAVENOUS (IV); COMPARISON: 1. CT angio chest PE protcl [id number] 05/16/2020 9:[address] abdomen pelvis w con* [id number] 04/13/2019 3:50 PM RADIATION DOSE METRICS: Total DLP (mGy-cm): 1442.64 FINDINGS: Lungs: Lung bases are clear. Liver: The liver is normal. Gallbladder and bile ducts: The gallbladder is absent. There is no intrahepatic or extrahepatic bile duct dilation. Pancreas: The pancreas is unremarkable. Spleen: The spleen is unremarkable. Adrenal glands: The adrenal glands are unremarkable. Kidneys and ureters: The kidneys are unremarkable. No hydronephrosis or stones. No ureteral dilation. There are multiple pelvic phleboliths along the course of the distal ureters. This finding is unchanged since 2019. Stomach and bowel: The stomach is decompressed, preventing meaningful evaluation of wall thickness. The small bowel is nondilated. There is moderate distal descending and sigmoid colonic diverticulosis without evidence of diverticulitis. Appendix: Absent Intraperitoneal space: There is no free air or significant intraperitoneal free fluid. Vasculature: There is moderate aortic atherosclerotic disease. The portal, splenic and superior mesenteric veins are patent. Lymph nodes: There is no lymphadenopathy in the retroperitoneum, mesentery, pelvis or inguinal regions. Urinary bladder: Unremarkable as visualized. Reproductive: The uterus is absent. There is no adnexal mass or large cyst. Bones/joints: There is moderate degenerative disease in the lower lumbar spine. Mild L1 superior endplate compression fracture is new since 05/16/2020. The pelvis and hips are unremarkable. Soft tissues: The abdominal wall is intact. CT/CT chest abd pel w con* IMPRESSION: No acute findings. IMPRESSION: 1. No acute intra-abdominal findings. 2. Age-indeterminate L1 compression fracture is new since 05/16/2020. 3. Incidental findings above.
[2021-07-22 16:18] LABS: Basophils % 0.1 %; Hematocrit 35.3 % (37.0-47.0); Hemoglobin 12.3 g/dL (11.5-15.3); Lymphocytes # 0.4 10^3/uL (0.8-4.8); Mean Corpuscular HGB Conc 34.8 g/dL (30.0-36.0); Mean Corpuscular Hemoglobin 30.2 pg (28.0-34.0); Mean Corpuscular Volume 86.7 fl (81-99); Mean Platelet Volume 11.4 fL (7.4-10.4); Monocytes # 0.5 10^3/uL (0.2-0.9); Neutrophils # 6.64 10^3/uL (1.8-7.7); Neutrophils % 87.6 %; Nucleated Red Blood Cells % 0 %; Platelet Count 153 10^3/cmm (130-400); Red Blood Count 4.07 10^6/uL (4.1-5.3); White Blood Count 7.6 10^3/uL (4.0-10.0)
[2021-07-22 16:38] VITALS: PULSE 80; RESP 16; O2SAT 90
[2021-07-22 16:47] LABS: Troponin(5th) Baseline 17 ng/L (0-10)
[2021-07-22 16:53] LABS: Procalcitonin 0.29 ng/mL (0-0.5); Thyroid Stimulating Hormone 1.26 uIU/mL (0.27-4.20)
--- NOTE | 2021-07-22 16:56 | PC.NURSE ---
Blood sugar 212.
[2021-07-22 17:04] LABS: Alanine Aminotransferase 14 U/L (0-33); Albumin Level 3.9 g/dL (3.5-5.2); Alkaline Phosphatase 55 IU/L (35-105); Aspartate Amino Transferase 19 U/L (0-32); Blood Urea Nitrogen 18 mg/dL (8-23); C Reactive Protein 71.6 mg/L (0.0-4.9); Calcium 8.3 mg/dL (8.5-10.5); Carbon Dioxide 27 mmol/L (22-29); Chloride 90 mmol/L (98-107); Globulin 2.8 g/dL (1.3-4.6); Glucose 225 mg/dL (65-115); Osmolality Calculated 277 mOsm/kg (285-295); Sodium 129 mmol/L (136-145); Total Bilirubin 0.7 mg/dL (0.15-1.2); Total Protein 6.7 g/dL (6.6-8.7)
[2021-07-22 17:08] LABS: Influenza A by IFA Negative (Negative); Influenza B by IFA Negative (Negative); SARS Covid-2 Antigen Negative (Negative)
[2021-07-22] MEDS: acetaminophen 500 mg Tablet 1000 MG PO (17:36)
[2021-07-22] MEDS: sodium chloride 0.9% 1,000 ML 999 ML IV (17:36)
[2021-07-22] MEDS: iodixanol 320 mg/mL 100mL Btl IV (17:40)
--- NOTE | 2021-07-22 17:54 | ECG_ITS ---
[facility] Test Date: 2021-07-22 Pat Name: Kell Tripathi Department: Room: Gender: Female Ginner: : 1940 Requested By: Keaton Amaya Order Number: [id number] Robinson MD: Osmar Gonzales M.D. Measurements Intervals [place] Rate: 82 P: 32 WI: 166 QRS: -34 QRSD: 93 T: 0 QT: 388 QTc: 453 Interpretive Statements SINUS RHYTHM No further interpretation possible secondary to underlying artifact Electronically Signed On 07-23-2021 8:23:32 CDT by Osmar Gonzales M.D. [id number]
[2021-07-22 17:58] LABS: Magnesium 1.6 mg/dL (1.7-2.3)
[2021-07-22 18:09] VITALS: BP 180/90; PULSE 79; RESP 19; O2SAT 92
[2021-07-22] MEDS: potassium chloride oral liq 20 mEq/15 mL UDC 40 MEQ PO (18:18)
[2021-07-22 18:35] LABS: Troponin 5 2HR 16.52 ng/L (0-10)
[2021-07-22 18:36] LABS: Blood Urine 3+ (Negative); Glucose Urine UA Norm (Normal); Ketones Urine Negative (Negative); Protein Urine 1+ (Negative); Urine Appearance Hazy (CLEAR); Urine Color Yellow (Yellow); pH Urine 5 (5-7)
[2021-07-22 18:37] LABS: Add Urine Microscopic? YES; Bilirubin Urine Neg (Negative); Leukocyte Esterase Urine 2+ (Negative); Nitrate Urine Positive (Negative); Urobilinogen Urine Norm (Negative)
[2021-07-22 18:38] LABS: Add Urine Culture? Yes; Bacteria Urine 4+ /hpf; Squamous Epithelial Cell Urine 0-4 /hpf (0-5); WBC Urine TOO NUMEROUS TO CNT /hpf (0-5)
[2021-07-22 18:51] VITALS: BP 154/90; PULSE 82; RESP 12; O2SAT 95
[2021-07-22 18:53] LABS: Troponin 5 2HR Delta -0.48 ABS# (0-10)
[2021-07-22] MEDS: cefTRIAXone 1,000 MG in sodium chloride 0.9% (plus) 50 ML 100 MG IV (18:59)
[2021-07-22 19:00] VITALS: BP 154/90; PULSE 78; RESP 22
[2021-07-22 19:47] VITALS: TEMP 36.6
[2021-07-23 06:44] LABS: Glucose Point of Care 216 mg/dL (70-110)
== END 2021-07-22 20:40 | disposition home or self-care (01) ==
PROVIDERS: Emergency Medicine; Emergency Provider Emergency Medicine; PCP Family Medicine
DX: N39.0 Urinary tract infection, site not specified (principal); M79.7 Fibromyalgia; E11.9 Type 2 diabetes mellitus without complications; I10 Essential (primary) hypertension; K21.9 Gastro-esophageal reflux disease without esophagitis; K57.90 Diverticulosis of intestine, part unspecified, without perforation or abscess without bleeding
CPT/HCPCS: 36416; 70450; 71260; 72125; 74177; 80053; 81001; 82962; 83605; 83735; 84145; 84443; 84484; 85025; 86140; 87040; 87077; 87086; 87186; 87426; 87804; 93005; 96360; 99284; J0696; J7030; Q9967

== ENCOUNTER → 2021-07-31 00:01 | Outpatient (BNVA) | payer MEDICARE, SELFPAY | PROVIDERS: PCP Family Medicine; Visit Provider Clinical Nurse Specialist Adult Health | DX: E87.6 Hypokalemia (principal) | CPT/HCPCS: 80048; 81000; 87086 ==

== ENCOUNTER → 2021-10-16 08:12 | Outpatient (BNVA) | payer MEDICARE, SELFPAY | PROVIDERS: PCP Family Medicine; Visit Provider Family Medicine | DX: E87.6 Hypokalemia (principal); N39.0 Urinary tract infection, site not specified; M54.9 Dorsalgia, unspecified; G89.29 Other chronic pain | CPT/HCPCS: 80048; 81000; 87077; 87086; 87184 ==

== ENCOUNTER → 2021-12-28 13:13 | Outpatient (BNVA) | payer MEDICARE, SELFPAY | PROVIDERS: PCP Family Medicine; Visit Provider Family Medicine | DX: N39.0 Urinary tract infection, site not specified (principal); E11.9 Type 2 diabetes mellitus without complications; I10 Essential (primary) hypertension | CPT/HCPCS: 80053; 80061; 83036; 85025 ==

== ENCOUNTER → 2022-01-17 13:01 | Outpatient (BNVA) | payer MEDICARE, SELFPAY | PROVIDERS: PCP Family Medicine; Visit Provider Nurse Practitioner Family | DX: N39.0 Urinary tract infection, site not specified (principal) | CPT/HCPCS: 51798; 81003; 87086; 99203 ==

== ENCOUNTER 2022-01-26 13:20 | Outpatient (CLI) | payer MEDICARE, SELFPAY ==
--- NOTE | 2022-01-26 | CT_ITS ---
WS: [id number] CT of the lumbar spine, additional two-dimensional coronal and sagittal imaging was obtained. 01/27/20 22 Clinical Data: BACK PAIN Comparison: MR lumbar spine, 01/03/2021, lumbar spine x-ray, 09/19/2020. DLP: 1305.[address] scans at [facility] use at least one of these dose optimization techniques: automated e xposure control; mA and/or kV adjustment per patient size (includes targeted exams where dose is matc hed to clinical indication); or iterative reconstruction. Findings: There is diffuse osteoporosis. The L1 compression fracture with loss of 50% of the anterior and central vertebral body height remains the same. There is anterior osteoarthritic spurring L1-L5. There is degenerative disc narrowing at L4-L5. There is a levoscoliosis. There is facet joint arthri tis L4-S1. There are epidural stimulator leads which are in the lumbar space and progress into the th oracic space. T12-L1: No canal stenosis, disc bulge or foraminal narrowing is seen. L1-L2: There is a disc bulge with spinal stenosis and foraminal stenosis. L2-L3: There is a broad-based disc bulge causing foraminal and spinal stenosis. L3-L4: There is an asymmetric broad-based disc bulge causing canal stenosis and especially right late ral foraminal stenosis. L4-L5: There is a broad-based disc bulge causing canal and foraminal stenosis. L5-S1: There is a broad-based disc bulge causing canal and foraminal stenosis. CT/CT lumbar spine wo con* [id number] Impression: 1. No change in L1 compression fracture. 2. Diffuse osteoporosis, anterior osteoarthritic spurring L1-L5, degenerative d isc narrowing at L4-L5 and levoscoliosis. 3. Facet joint arthritis L4-S1. 4. Diffuse multilevel degenerative disc bulging along with foraminal and centra l canal stenosis.
--- NOTE | 2022-01-26 13:28 | XR_ITS ---
WS: [id number] Exam: XR lumbar spine 2-3V* [id number] Date/Time of Exam: 01/26/2022 1:44 PM Reason For Exam: VERTEBROGENIC LOW BACK PAIN Comparison 09/19/2020. No acute fracture. Old low-grade compression fracture of L1. There is spondylosis and degenerative di sc change at all levels. Chronic asymmetry of the upper plate of L4 again noted. Levoscoliosis. Facet arthropathy at all levels. Osteopenia. A pain pump is noted over the left pelvis with catheters exte nding into the thoracic region. Aortoiliac atherosclerosis. XR/XR lumbar spine 2-3V* [id number] IMPRESSION: 1. No acute fracture. 2. Old nondisplaced compression fracture of L1. 2. Degenerative changes, osteopenia and levoscoliosis.
== END 2022-01-26 13:21 | disposition home or self-care (01) ==
LOC: RAD 13:21
PROVIDERS: PCP Family Medicine; Visit Provider Anesthesiology Pain Medicine
DX: M54.51 Vertebrogenic low back pain (principal); M41.86 Other forms of scoliosis, lumbar region; M48.061 Spinal stenosis, lumbar region without neurogenic claudication; M47.817 Spondylosis without myelopathy or radiculopathy, lumbosacral region; M85.88 Other specified disorders of bone density and structure, other site; Z87.311 Personal history of (healed) other pathological fracture
CPT/HCPCS: 72100; 72131

== ENCOUNTER → 2022-02-28 08:39 | Outpatient (BNVA) | payer MEDICARE, SELFPAY | PROVIDERS: PCP Family Medicine; Visit Provider Family Medicine | DX: I10 Essential (primary) hypertension (principal); E11.9 Type 2 diabetes mellitus without complications | CPT/HCPCS: 80053 ==

== ENCOUNTER → 2022-03-30 10:18 | Outpatient (BNVA) | payer MEDICARE, SELFPAY | PROVIDERS: PCP Family Medicine; Visit Provider Urology | DX: N30.20 Other chronic cystitis without hematuria (principal); R21 Rash and other nonspecific skin eruption | CPT/HCPCS: 52000; 81003; 99213 ==

== ENCOUNTER → 2022-04-05 14:31 | Outpatient (BNVA) | payer MEDICARE, SELFPAY | PROVIDERS: PCP Family Medicine; Visit Provider Urology | DX: N30.20 Other chronic cystitis without hematuria (principal) | CPT/HCPCS: 87086; 88112 ==

== ENCOUNTER → 2022-05-09 14:18 | Outpatient (BNVA) | payer MEDICARE, SELFPAY | PROVIDERS: PCP Family Medicine; Visit Provider Urology | DX: N30.20 Other chronic cystitis without hematuria (principal); R21 Rash and other nonspecific skin eruption; Z90.49 Acquired absence of other specified parts of digestive tract | CPT/HCPCS: 81003; 99213 ==

== ENCOUNTER → 2022-06-12 09:35 | Outpatient (BNVA) | payer MEDICARE, SELFPAY | PROVIDERS: PCP Family Medicine; Visit Provider Family Medicine | DX: I10 Essential (primary) hypertension (principal); E11.9 Type 2 diabetes mellitus without complications | CPT/HCPCS: 80053; 80061; 83036 ==

== ENCOUNTER → 2022-06-20 15:52 | Outpatient (BNVA) | payer MEDICARE, SELFPAY | PROVIDERS: PCP Family Medicine; Visit Provider Urology | DX: N30.20 Other chronic cystitis without hematuria (principal); R21 Rash and other nonspecific skin eruption | CPT/HCPCS: 99213 ==

== ENCOUNTER → 2022-06-28 15:01 | Outpatient (BNVA) | payer MEDICARE, SELFPAY | PROVIDERS: PCP Family Medicine; Visit Provider Family Medicine | DX: E87.1 Hypo-osmolality and hyponatremia (principal) | CPT/HCPCS: 80048 ==

== ENCOUNTER → 2022-08-01 15:45 | Outpatient (BNVA) | payer MEDICARE, SELFPAY | PROVIDERS: PCP Family Medicine; Visit Provider Urology | DX: N30.20 Other chronic cystitis without hematuria (principal); N94.9 Unspecified condition associated with female genital organs and menstrual cycle; R21 Rash and other nonspecific skin eruption | CPT/HCPCS: 81003 ==

== ENCOUNTER → 2022-08-14 12:04 | Outpatient (BNVA) | payer MEDICARE, SELFPAY | PROVIDERS: PCP Family Medicine; Visit Provider Clinical Nurse Specialist Adult Health | DX: N39.0 Urinary tract infection, site not specified (principal) | CPT/HCPCS: 81000 ==

== ENCOUNTER → 2022-09-05 11:49 | Outpatient (BNVA) | payer MEDICARE, SELFPAY | PROVIDERS: PCP Family Medicine; Visit Provider Urology | DX: N30.20 Other chronic cystitis without hematuria (principal) | CPT/HCPCS: 81003; 87077; 87086; 87186; 99213 ==

== ENCOUNTER → 2022-09-11 08:45 | Outpatient (BNVA) | payer MEDICARE, SELFPAY | PROVIDERS: PCP Family Medicine; Visit Provider Family Medicine | DX: I10 Essential (primary) hypertension (principal); E11.9 Type 2 diabetes mellitus without complications; E87.1 Hypo-osmolality and hyponatremia | CPT/HCPCS: 80053; 80061; 83036 ==

== ENCOUNTER → 2022-11-30 08:33 | Outpatient (BNVA) | payer MEDICARE, OTHER, SELFPAY | PROVIDERS: PCP Family Medicine; Visit Provider Family Medicine | DX: I10 Essential (primary) hypertension (principal); E11.9 Type 2 diabetes mellitus without complications; E87.1 Hypo-osmolality and hyponatremia | CPT/HCPCS: 80053; 80061; 83036 ==

== ENCOUNTER → 2022-12-04 13:57 | Outpatient (BNVA) | payer MEDICARE, OTHER, SELFPAY | PROVIDERS: PCP Family Medicine; Visit Provider Family Medicine | DX: E11.9 Type 2 diabetes mellitus without complications (principal); E55.9 Vitamin D deficiency, unspecified; I10 Essential (primary) hypertension; R53.83 Other fatigue; E87.1 Hypo-osmolality and hyponatremia; N30.20 Other chronic cystitis without hematuria | CPT/HCPCS: 82306; 82607; 83880; 84443; 85025; 85651; 86140 ==

== ENCOUNTER → 2023-02-28 08:33 | Outpatient (BNVA) | payer MEDICARE, OTHER, SELFPAY | PROVIDERS: PCP Family Medicine; Visit Provider Family Medicine | DX: E11.9 Type 2 diabetes mellitus without complications (principal); I10 Essential (primary) hypertension; R53.83 Other fatigue; Z79.899 Other long term (current) drug therapy | CPT/HCPCS: 82306; 82607; 83880; 84443; 85025; 85651; 86140 ==

== ENCOUNTER → 2023-04-17 15:22 | Outpatient (BNVA) | payer MEDICARE, OTHER, SELFPAY | PROVIDERS: PCP Family Medicine; Visit Provider Clinical Nurse Specialist Adult Health | DX: N39.0 Urinary tract infection, site not specified (principal) | CPT/HCPCS: 81000; 87086 ==

== ENCOUNTER → 2023-05-30 13:47 | Outpatient (BNVA) | payer MEDICARE, OTHER, SELFPAY | PROVIDERS: PCP Family Medicine; Visit Provider Family Medicine | DX: K57.92 Diverticulitis of intestine, part unspecified, without perforation or abscess without bleeding (principal) | CPT/HCPCS: 80053; 85025; 86140 ==